=== PATIENT | male | born 1955 | race Caucasian/White ===

== ENCOUNTER 2019-11-02 15:05 | Emergency (ER) | payer BC ==
[~2019-11-02] VITALS: Ht 182.9 cm; Wt 128.4 kg
[2019-11-02 15:47] VITALS: Ht 182.9 cm; Wt 128.4 kg
[2019-11-02 17:51] VITALS: BP 203/138
== END 2019-11-02 17:51 | disposition home or self-care (01) ==
LOC: ED 15:05
DX: S61.412A Laceration without foreign body of left hand, initial encounter (principal); S60.417A Abrasion of left little finger, initial encounter; I10 Essential (primary) hypertension; Z98.890 Other specified postprocedural states; Z88.0 Allergy status to penicillin; W55.03XA Scratched by cat, initial encounter; Y93.89 Activity, other specified; Y92.89 Other specified places as the place of occurrence of the external cause; Y99.8 Other external cause status
CPT/HCPCS: A4570; Q0092